=== PATIENT | female | born 1940 | race Caucasian/White ===

== ENCOUNTER 2017-07-31 09:19 | Day surgery (SDC) | payer OTHER ==
[2017-07-27 13:52] VITALS: BMI 32.5
[2017-07-31] MEDS ORDERED: PROPOFOL 20 ML ONE ×3 (09:49)
[2017-07-31] MEDS ORDERED: METOCLOPRAMIDE HCL INJECTION 10 MG/2 ML VIAL ONE (10:38)
[2017-07-31 11:03] VITALS: TEMP 97.8
[2017-07-31 11:32] VITALS: BP 116/64; PULSE 64
--- NOTE | 2017-08-01 12:17 | PATH ---
Surgical Pathology Report Patient Name: SREE LEE [facility]. Rec. #: [id number] /Age/Gender: 1940 (Age: 77) / F Account: [id number] Location: [facility]-ENDOSCOPY Taken: 07/31/2017 Received: 07/31/2017 Reported: 08/01/2017 Physicians: Dino Leung M.D. Specimen(s) Received A: BX STOMACH B: TRANSVERSE COLON POLYP C: TRANSVERE COLON POLYP Clinical History Anemia, blood Normal EGD, colon polyps (transverse colon); diverticulosis Final Diagnosis A. 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 NEGATIVE FOR DYSPLASIA. IMMUNOSTAIN FOR H. PYLORI IS POSITIVE FOR ORGANISMS (MODERATE NUMBER OF ORGANISMS). B. COLON, TRANSVERSE, POLYP, POLYPECTOMY: SERRATED ADENOMA. C. COLON, TRANSVERSE, POLYP, POLYPECTOMY: TUBULAR ADENOMA. Electronically Signed Munir Hutchison M.D. Gross Description A. Received in formalin, labeled "biopsy stomach" are 2 allison, irregular portions of soft tissue averaging 0.3 cm in greatest dimension. The specimens are submitted in toto in one cassette. B. Received in formalin, labeled "transverse colon polyp" is a allison, irregular portion of soft tissue measuring 0.2 cm in greatest dimension. The specimen is submitted in toto in one cassette. C. Received in formalin, labeled "transverse colon polyp" is a allison, irregular portion of soft tissue measuring 0.5 cm in greatest dimension. The specimen is submitted in toto in one cassette. 07/31/201707/31/2017
== END 2017-07-31 12:18 | disposition home or self-care (01) ==
LOC: JASU-ENDO 09:19
PROVIDERS: ATTEND Internal Medicine Gastroenterology
PROC: 0DBL8ZX Excision of Transverse Colon, Via Natural or Artificial Opening Endoscopic, Diagnostic (ICD-10-PCS; principal; 2017-07-31 09:45)
DX: Z12.11 Encounter for screening for malignant neoplasm of colon (principal); D12.3 Benign neoplasm of transverse colon; K57.30 Diverticulosis of large intestine without perforation or abscess without bleeding
CPT/HCPCS: 88305-TC; 88342-TC

== ENCOUNTER → 2018-09-02 | Day surgery (SDC) | payer OTHER ==
--- NOTE | 2018-09-06 14:24 | PATH ---
Surgical Pathology Report Patient Name: SREE LEE [facility]. Rec. #: [id number] /Age/Gender: 1940 (Age: 78) / F Account: [id number] Location: [facility]IOLOGY [facility] Taken: 09/02/2018 Received: 09/02/2018 Reported: 09/03/2018 Physicians: Hien Siegel Specimen(s) Received RIGHT BREAST,12:00 Clinical History Nonpalpable lesion Mammographic findings: Suspicious Ultrasound findings: Suspicious 0.7 CM, 12:00 Final Diagnosis BREAST, RIGHT, 12:00, ULTRASOUND GUIDED CORE BIOPSY: INVASIVE DUCTAL CARCINOMA, POORLY DIFFERENTIATED, WITH FOCAL MICROPAPILLARY FEATURES, ATLEAST 10 MM IN THIS MATERIAL. Comment: Findings discussed with Dr. Silva. ER, NH, HER2 and Ki-67 studies are pending, and will be reported separately. Electronically Signed Jessa Wong M.D. Addendum Reported: 09/04/2018 Addendum Diagnosis Results of Estrogen Receptor (ER) and Progesterone Receptor (NH) studies performed on block "1" at [facility] are as follows: ER (clone [id number] mouse monoclonal antibody by [employer]): >99% nuclear staining with strong intensity (Positive). NH (clone16 mouse monoclonal antibody by [employer]):>99% nuclear staining with strong intensity (Positive). Results of Her2 (IHC) & Ki-67 studies performed on block "1" at [place], [place] ([id number]) are as follows: Her2 IHC (EP3 from [employer], formerly known as [id number], using Saldaña Polymer Refine detection kit): 1+ ( Negative). Ki-67: ~20% (Intermediate proliferative index). Positive and negative controls (internal if applicable) show appropriate results. Formalin fixation and cold ischemic times are within current ASCO/CAP recommendations for ER, NH and Her2 testing.. Jessa Wong M.D. Gross Description Received in formalin labeled "right breast biopsy 12:00," are 4 allison-yellow, cylindrical portions of fibroadipose tissue ranging from 1.0-1.4 cm in length and averaging 0.1 cm in diameter. The specimens are submitted in toto in one cassette. Time to formalin fixation: Less than one minute Total formalin fixation time: Approximately 9 hours. 09/02/2018 saudi09/02/2018
== END | disposition home or self-care (01) ==
LOC: JRADUS-SUR 08:34
PROVIDERS: ATTEND Nurse Practitioner Family
PROC: 0HBT3ZX Excision of Right Breast, Percutaneous Approach, Diagnostic (ICD-10-PCS; principal; 2018-09-02)
DX: C50.811 Malignant neoplasm of overlapping sites of right female breast (principal)
CPT/HCPCS: 19083; 77065-TC; 88305-TC; 88342-TC

== ENCOUNTER 2018-09-27 13:00 | Inpatient (IN) | payer OTHER ==
--- NOTE | 2018-09-24 14:20 | HP ---
Admitting History and Physical - Primary Care Physician PCP: Hardy Mathis - Admission Chief Complaint: Right breast cancer History of Present Illness: 78 yo female with h/o left breast cancer (2011), was noted to have a right 1.1 cm mass at 12 oclock on mammo and US (06/24/2018). Core bx of this mass was c/w invasive breast cancer ER and [facility] positive, HER 2 negative. The patient is now presenting for right mastectomy, sentinel node bx, possible axillary node dissection and left chest wall skin excision. History Source: Patient Limitations to Obtaining History: Dementia (mild dementia) - Past Medical History Cardiovascular: Yes: HTN Pulmonary: Yes: Asthma ...: No Heme/Onc: Yes: Cancer (left breast cancer) - Past Surgical History Past Surgical History: Yes: Breast Biopsy (right excisional bx (benign at 37 yo) ), Mastectomy (left mastectomy with axillary albin bx 2011) Additional Past Surgical History: bilateral knee surgery (2003 and 2006) - Smoking History Smoking history: Never smoked Have you smoked in the past 12 months: No - Alcohol/Substance Use Hx Alcohol Use: No Home Medications - Allergies Allergies/Adverse Reactions: Allergies Allergy/AdvReac Type Severity Reaction Status Date / Time Penicillins Allergy Severe Rash Verified 09/20/18 14:25 hydromorphone HCl Allergy Unknown Verified 09/20/18 14:25 [From Dilaudid] ketorolac tromethamine Allergy Unknown Verified 09/20/18 14:25 [From Toradol] tape Allergy Unknown Rash Uncoded 09/20/18 14:25 - Home Medications Home Medications: Ambulatory Orders Amlodipine Bes/Olmesartan Med [Amlodipine-Olmesartan 10-20 mg] 1 each PO DAILY 07/31/17 Family Disease History - Family Disease History Family Disease History: CA: Sister (, x 1 ovarian cancer at 60) Review of Systems - Review of Systems Constitutional: reports: Loss of Appetite Eyes: reports: Blurred Vision Cardiovascular: reports: Chest Pain Respiratory: reports: Wheezing Musculoskeletal: reports: Back Pain Physical Examination Constitutional: Yes: Well Nourished, Calm Cardiovascular: Yes: WNL Respiratory: Yes: WNL Breast(s): Yes: Other (The right breast tissue is diffusely nodular and dense with a 1.5 cm mobile mass at 12N%. Left chest wall with redundant skin but without any suspicious masses or adenopathy noted.) Problem List - Problems (1) Breast cancer, right Code(s): C50.911 - MALIGNANT NEOPLASM OF UNSP SITE OF RIGHT FEMALE BREAST Qualifiers: Breast location: overlapping sites of breast Estrogen receptor status: positive Patient sex: female Qualified Code(s): C50.811 - Malignant neoplasm of overlapping sites of right female breast; Z17.0 - Estrogen receptor positive status [ER+] Assessment/Plan Plan' right mastectomy, snbx possible andx, left chest wall skin excision
[2018-09-28] MEDS ORDERED: HEPARIN NA (PORCINE) 5,000 UNITS/ML 1ML VIAL SQ SCH (10:00)
[2018-10-08 07:49] VITALS: BMI 34.0
[2018-10-08] MEDS ORDERED: PROPOFOL 20 ML ONE ×2 (08:01)
[2018-10-08] MEDS ORDERED: MIDAZOLAM HCL 2 MG/2 ML SINGLE DOSE VIAL ONE (08:01)
[2018-10-08] MEDS ORDERED: ROCURONIUM BROMIDE 50 MG/5 ML VIAL ONE (08:01)
[2018-10-08] MEDS ORDERED: SUCCINYLCHOLINE CHLORIDE 200 MG/10 ML VIAL ONE (08:01)
[2018-10-08] MEDS ORDERED: ACETAMINOPHEN 325 MG TABLET (FP) PO PRN (08:54)
[2018-10-08] MEDS ORDERED: ONDANSETRON 4 MG/2 ML VIAL IVPUSH PRN (08:54)
[2018-10-08] MEDS ORDERED: ZOLPIDEM TARTRATE 5 MG TABLET PO PRN (08:54)
[2018-10-08] MEDS ORDERED: oxyCODONE HCL 5 MG TABLET PO PRN (08:54)
[2018-10-08] MEDS ORDERED: BUPIVACAINE HCL/PF 2.5 MG/ML - 30 ML VIAL IJ ONE (08:58)
[2018-10-08] MEDS ORDERED: ISOSULFAN BLUE 10 MG/ML VIAL SQ ONE (08:58)
[2018-10-08] MEDS ORDERED: ceFAZolin SODIUM 1 GM VIAL ONE (09:10)
[2018-10-08] MEDS ORDERED: DEXAMETHASONE SOD PHOSPHATE 4 MG/1 ML VIAL ONE (09:10)
[2018-10-08] MEDS ORDERED: ePHEDrine SULFATE 50 MG/1 ML AMPULE ONE (09:15)
[2018-10-08] MEDS ORDERED: BUPIVACAINE HCL/PF 0.25% (2.5MG/ML) 10 ML VIAL IJ ONE (09:55)
[2018-10-08] MEDS ORDERED: PATIENT'S OWN MEDICATION (NON-FORMULARY) (Amlodipine Bes/Olmesartan Med [Amlodipine-Olmesa PO SCH (10:00)
[2018-10-08] MEDS ORDERED: DESFLURANE GAS 240 ML BOTTLE IH ONE (10:44)
[2018-10-08] MEDS ORDERED: NEOSTIGMINE METHYLSULFATE 0.5 MG/ML - 10 ML MDV ONE (11:06)
[2018-10-08] MEDS ORDERED: GLYCOPYRROLATE 0.2 MG/1 ML VIAL ONE ×2 (11:06→11:07)
--- NOTE | 2018-10-08 13:44 | OP ---
DATE OF OPERATION: 10/08/2018 PREOPERATIVE DIAGNOSIS: Right breast cancer, status post left mastectomy. POSTOPERATIVE DIAGNOSIS: Right breast cancer, status post left mastectomy. PROCEDURE: Right total mastectomy with sentinel node biopsy and left chest wall skin excision. ANESTHESIA: General intubated. ATTENDING SURGEON: Elizabeth Mathis MD SCHOOL COUNSELOR: KARLA Blood ESTIMATED BLOOD LOSS: Minimal. COMPLICATIONS: None. DESCRIPTION OF PROCEDURE: Patient was made aware of the risks and benefits of the procedure and consented. She was placed in the supine position, and after general anesthesia was induced, the patient was intubated. Then, 3 mL of 1% isosulfan blue was locally infiltrated into the peritumoral tissues. The operative site was prepped and draped in the usual sterile fashion. A curvilinear incision was made in the right axilla using blunt and sharp dissection. Tissues were dissected down. A cluster of 3 blue lymph nodes were identified and surgically excised and sent for frozen section. These were reported as no evidence of metastasis. Examination of the rest of the axilla found no other suspicious lymph nodes. An elliptical incision was made around the nipple. Using electrocautery, skin flaps were made superior to the clavicle, medial to the sternum, lateral to the latissimus dorsi, and inferiorly to the inframammary fold. Using electrocautery, the breast tissue was taken off the pectoralis muscle extending laterally to the latissimus dorsi. The right breast was then submitted with a short suture superior, long suture lateral. The wound was copiously irrigated with normal saline. Hemostasis was maintained by electrocautery. A 15-Ukrainian drain was then placed through an inferior stab wound and sutured to the skin with 2-0 silk. Skin was then closed with deep 3-0 and 4-0 interrupted Vicryl followed by a running subcuticular 4-0 Monocryl. Steri-Strips were then applied. The left side was approached. An elliptical incision was made over the redundant skin using electrocautery. Tissues were dissected down to the pectoral muscle and then taken off the lateral chest wall towards the axilla. This was then submitted for permanent sectioning. The wound was copiously irrigated with normal saline. Hemostasis was maintained by electrocautery. Through an inferior stab wound, another 15-Ukrainian drain was then placed and sutured to the skin with 2-0 silk. Skin was then closed with deep 2-0 and 3-0 deep sutures followed by a running subcuticular 4-0 Monocryl. Steri-Strips, sterile dressing, and a compression bandage were then applied, and the patient, having tolerated the procedure well, was transferred to the recovery room in excellent condition. ELIZABETH MATHIS M.D. [id number]
[2018-10-08] MEDS ORDERED: REFRIGERATED ANITBIOTICS ONE (15:40)
[2018-10-08] MEDS: CEFAZOLIN 1 GM/D5W 1 GRAM/50 ML BAG IVPB SCH (22:09)
[2018-10-09] MEDS: CEFAZOLIN 1 GM/D5W 1 GRAM/50 ML BAG IVPB SCH ×5 (02:57→21:21)
[2018-10-09 09:02] LABS: HEMATOCRIT 36.9 % (32.4-45.2); HEMOGLOBIN 12.5 GM/dl (10.7-15.3); MCH 30.8 pg (25.7-33.7); MCHC 33.8 g/dl (32.0-36.0); MEAN CELL VOLUME 91.3 fl (80-96); MEAN PLT VOLUME 9.6 fl (7.5-11.1); PLATELET COUNT 152 K/MM3 (134-434); RBC 4.04 M/mm3 (3.60-5.2); RDW 13.4 % (11.6-15.6); WHITE BLOOD COUNT 10.4 K/mm3 (4.0-10.8)
--- NOTE | 2018-10-09 09:02 | PN ---
Progress Note, Physician Chief Complaint: Right breast cancer S/P right total mastectomy sentenel node biopsy and excision of extra skin and tissue left breast POD #1 History of Present Illness: patient eating OOB ,minimal pain - Current Medication List Current Medications: Active Medications Acetaminophen (Tylenol -) 650 mg PO Q4H PRN PRN Reason: MILD PAIN Amlodipine Besylate (Norvasc -) 10 mg PO DAILY [facility] Heparin Sodium (Porcine) (Heparin -) 5,000 unit SQ BID@0800,2000 [facility] Cefazolin Sodium (Ancef 1 Gm Premixed Ivpb -) 1 gram in 50 mls @ 100 mls/hr IVPB Q6H-IV [facility] Stop: 10/15/18 14:59 Last Admin: 10/09/18 02:57 Dose: 100 mls/hr Dextrose/Sodium Chloride (D5-1/2ns -) 1,000 mls @ 100 mls/hr IV ASDIR [facility] Ondansetron HCl (Zofran Injection) 4 mg IVPUSH Q6H PRN PRN Reason: NAUSEA AND/OR VOMITING Oxycodone HCl (Roxicodone -) 5 mg PO Q4H PRN PRN Reason: PAIN LEVEL 6-10 Valsartan (Diovan -) 160 mg PO DAILY [facility] Zolpidem Tartrate (Ambien -) 5 mg PO HS PRN PRN Reason: Insomnia - Objective Vital Signs: Vital Signs Temperature 98.0 F 10/09/18 06:00 Pulse Rate 58 L 10/09/18 06:00 Respiratory Rate 17 10/09/18 06:00 Blood Pressure 131/47 L 10/09/18 06:00 O2 Sat by Pulse Oximetry (%) 97 10/09/18 07:01 Constitutional: Yes: No Distress Breast(s): Yes: Other (Biltaeral chest wall flaps viable incision intact HANNAH drains functioning well no signs of infection) Problem List - Problems (1) Breast cancer, right Code(s): C50.911 - MALIGNANT NEOPLASM OF UNSP SITE OF RIGHT FEMALE BREAST Qualifiers: Breast location: overlapping sites of breast Estrogen receptor status: positive Patient sex: female Qualified Code(s): C50.811 - Malignant neoplasm of overlapping sites of right female breast; Z17.0 - Estrogen receptor positive status [ER+] Assessment/Plan IV antibiotics spirometry SCD Heparin discharge planned for tomorrow consider VNS
--- NOTE | 2018-10-09 09:53 | PN ---
Progress Note (short form) - Note Progress Note: 78F POD1 s/p right breast mastectomy with sentinel lymph node biopsy and left chest wall skin excision under [facility]T Pt states that pain is well controlled and reports no anesthetic complications. AVSS. Continue current regimen.
[2018-10-09] MEDS: DEXTROSE 5%-0.45% SALINE 1,000 ML IV SCH (10:33)
[2018-10-09] MEDS: VALSARTAN 160 MG TABLET (UD) PO SCH ×2 (10:33→10:38)
[2018-10-09] MEDS: amLODIPine BESYLATE 10 MG TABLET (FP) PO SCH ×2 (10:34→10:38)
[2018-10-09] MEDS: HEPARIN NA (PORCINE) 5,000 UNITS/ML 1ML VIAL SQ SCH ×2 (10:35→21:21)
[2018-10-10] MEDS: CEFAZOLIN 1 GM/D5W 1 GRAM/50 ML BAG IVPB SCH ×2 (02:20→09:46)
[2018-10-10 06:50] VITALS: TEMP 97.8
[2018-10-10] MEDS: HEPARIN NA (PORCINE) 5,000 UNITS/ML 1ML VIAL SQ SCH (08:44)
--- NOTE | 2018-10-10 08:46 | PN ---
Progress Note, Physician Chief Complaint: Right breast cancer S/P right total mastectomy sentenel node biopsy and excision left chest wall skin POD #2 History of Present Illness: Patient is OOB , eating , pain controlled without medication ready for discharge with VNS services - Current Medication List Current Medications: Active Medications Acetaminophen (Tylenol -) 650 mg PO Q4H PRN PRN Reason: MILD PAIN Amlodipine Besylate (Norvasc -) 10 mg PO DAILY [facility] Last Admin: 10/09/18 10:38 Dose: Not Given Heparin Sodium (Porcine) (Heparin -) 5,000 unit SQ BID@0800,2000 [facility] Last Admin: 10/09/18 21:21 Dose: 5,000 unit Cefazolin Sodium (Ancef 1 Gm Premixed Ivpb -) 1 gram in 50 mls @ 100 mls/hr IVPB Q6H-IV [facility] Stop: 10/15/18 14:59 Last Admin: 10/10/18 02:20 Dose: 100 mls/hr Dextrose/Sodium Chloride (D5-1/2ns -) 1,000 mls @ 100 mls/hr IV ASDIR [facility] Last Admin: 10/09/18 10:33 Dose: Not Given Ondansetron HCl (Zofran Injection) 4 mg IVPUSH Q6H PRN PRN Reason: NAUSEA AND/OR VOMITING Oxycodone HCl (Roxicodone -) 5 mg PO Q4H PRN PRN Reason: PAIN LEVEL 6-10 Valsartan (Diovan -) 160 mg PO DAILY [facility] Last Admin: 10/09/18 10:38 Dose: Not Given Zolpidem Tartrate (Ambien -) 5 mg PO HS PRN PRN Reason: Insomnia - Objective Vital Signs: Vital Signs Temperature 97.8 F 10/10/18 06:00 Pulse Rate 57 L 10/10/18 06:00 Respiratory Rate 18 10/10/18 06:00 Blood Pressure 139/62 10/10/18 06:00 O2 Sat by Pulse Oximetry (%) 95 10/10/18 06:00 Constitutional: Yes: No Distress Breast(s): Yes: Other (Bilateral chest wall flaps viable incision intact steristrips in place, rudolph drains functioning well no signs of infection) Labs: CBC, BMP 10/09/18 08:53 Problem List - Problems (1) Breast cancer, right Code(s): C50.911 - MALIGNANT NEOPLASM OF UNSP SITE OF RIGHT FEMALE BREAST Qualifiers: Breast location: overlapping sites of breast Estrogen receptor status: positive Patient sex: female Qualified Code(s): C50.811 - Malignant neoplasm of overlapping sites of right female breast; Z17.0 - Estrogen receptor positive status [ER+] Assessment/Plan Discharge patient home today with VNS Cipro twice daily follow up one week with Dr Mathis
--- NOTE | 2018-10-10 08:47 | DS ---
Physical Examination Vital Signs: Vital Signs Temperature 97.8 F 10/10/18 06:00 Pulse Rate 57 L 10/10/18 06:00 Respiratory Rate 18 10/10/18 06:00 Blood Pressure 139/62 10/10/18 06:00 O2 Sat by Pulse Oximetry (%) 95 10/10/18 06:00 Constitutional: Yes: No Distress Breast(s): Yes: Other (Bilateral chest wall flaps viable incision intact with sterisstrips ,no sign of infection HANNAH drains functionin well) Labs: CBC, BMP 10/09/18 08:53 Discharge Summary Reason For Visit: RIGHT BREAST CA Condition: Good - Instructions Diet, Activity, Other Instructions: Post Operative Instructions - [facility] We hope your recovery will be uneventful. For those of you who have been given general anesthesia, there is a possibility you might have some lightheadedness and possibly nausea. It is important that each patient, especially those who have had general anesthesia, follow these instructions, please: 1. Do NOT operate a motor vehicle for 24 hours. 2. Do NOT drink any alcoholic beverages for 24 hours. 3. Do NOT take any sedatives, narcotics, or tranquilizers for 24 hours unless specifically ordered by your surgeon. 4. Do NOT undertake any strenuous exercise or outside activity for 24 hours unless specifically permitted by your surgeon. 5. Eat light foods that are easy to digest. If you have any problems with nausea and vomiting, lie down and rest. If it continues, call your surgeon. 6. Call your surgeon AT ONCE if you have problems with: a. Bleeding b. Urinating c. Excessive pain or drainage d. Numbness If any problems occur, call your physician first. If you cannot reach him/her, call the Ambulatory Surgery Unit at [phone], or the Emergency Room at [phone]. Follow up with Drs. Urena / Antonio in 7 days. Medication: Vicodin E-S OR Percocet 1-2 tablets every 4-6 hrs as needed for 5-7 days. Wound Care: Keep wound dry and clean for 48 hours. You may remove the dressing after 48 hours and may shower. Keep steri-strips in place until follow-up appointment No heavy lifting or strenuous activities. BREAST SURGERY INSTRUCTIONS Gerry Urena M.D., FACS Duran Urena M.D., VINNIE Alvarez M.D., FACS 1. Please call the office at to make a follow up appointment with your surgeon. This number can be also used for any urgent issues you may have. 2. Call us immediately if any of the following occur: *Bleeding from the incision or drain site (a small amount is normal) *Fever or chills *Redness and worsening tenderness around the surgical site *Drainage of pus or fluid from the incision or drain site 3. You may change the surgical dressing two (2) days after your surgery, and may shower then. If you have drains, you may shower after they have been removed, until then take a sponge bath. 4. It is normal for there to be some bruising and tenderness around the surgical site, and the breast may also be firm in this area. 5. Your surgeon used 3M DuraPrep Surgical Solution, a bacteria-killing skin preparation. It is recommended that this film remain on the skin after the procedure. The film will gradually wear away. If, however, early removal is desired: 1. Apply 8610 or 8611 3M Remover solution to the prepped area, keeping away from the wound edge or puncture site. Wipe off with a disposable towel. OR 2. Soak gauze with 70% Isopropyl alcohol and place on the prepped area for at least 40 seconds. Lightly scrub to remove the solution. 6. Please wear a comfortable bra (sports or surgical bra) all day and all night until your first follow-up visit with your surgeon. 7. The pain medicine you have been prescribed may make you constipated; make sure you drink plenty of water. You may use an over the counter laxative if needed. 8. You may resume your normal diet after surgery, although you may want to avoid rich foods for the first twenty-four (24) hours after surgery. Alcoholic drinks should be avoided while taking the prescribed pain medicine. 9. You may resume normal activities as long as there is no discomfort, but do not do upper body exercises until after your follow-up appointment. Do not lift anything heavier than a large phone book. You may resume driving once you have stopped taking the prescribed pain medicine and feel comfortable doing arm movements. WEAR BINDER, NO SHOWER, EMPTY HANNAH DRAIN TWICE DAILY AND RECORD Referrals: Hardy Mathis MD [Staff Physician] - Disposition: HOME - Home Medications Comprehensive Discharge Medication List: Ambulatory Orders Amlodipine Bes/Olmesartan Med [Amlodipine-Olmesartan 10-20 mg] 1 each PO DAILY 07/31/17 Acetaminophen [Tylenol] 650 mg PO TID PRN #30 tablet 10/09/18 Ciprofloxacin HCl [Cipro] 500 mg PO BID #20 tablet 10/10/18
[2018-10-10] MEDS: DEXTROSE 5%-0.45% SALINE 1,000 ML IV SCH (09:46)
[2018-10-10] MEDS: amLODIPine BESYLATE 10 MG TABLET (FP) PO SCH (09:47)
[2018-10-10] MEDS: VALSARTAN 160 MG TABLET (UD) PO SCH (09:47)
[2018-10-10 10:13] VITALS: BP 129/60; PULSE 59
--- NOTE | 2018-10-16 17:43 | PATH ---
Surgical Pathology Report Patient Name: [facility]. Rec. #: [id number] /Age/Gender: 1940 (Age: 78) / F Account: [id number] Location: [facility] MED-SURG Taken: 10/08/2018 Received: 10/08/2018 Reported: 10/16/2018 Physicians: Hardy Mathis M.D. Specimen(s) Received A: RIGHT AXILLARY SENTINEL NODES (FS) B: RIGHT BREAST MASTECTOMY C: LEFT CHEST WALL SKIN AND SUBCUTANEOUS TISSUE Clinical History Status post left mastectomy Invasive Ca right breast Intraoperative Consult Diagnosis Right axillary sentinel node, frozen section: Three negative lymph nodes. Taye Saenz M.D., 10/08/18 Final Diagnosis A. lymph nodes, right axillary sentinel, excision (FS): Three lymph nodes, negative for metastatic carcinoma (0/3). B. breast, right, total mastectomy: Two foci of invasive ductal carcinoma, present in the upper inner quadrant (UIQ) and lower inner quadrant (LIQ), respectively: The focus of invasive carcinoma in the UIQ is moderately differentiated with micropapillary features (tubule score: 3/3, nuclear grade: 2/3, mitotic score: 2/3, total score: 7/9; Rich grade 2), measures 1.1 cm in greatest dimension, microscopically and is present in association with prior biopsy site changes. THE Focus of invasive carcinoma in the LIQ is moderately differentiated (tubule score: 3/3, nuclear grade: 2/3, mitotic score: 1/3, total score: 6/9; Rich grade 2) and measures 5 mm in greatest dimension, microscopically. 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 Surgical margins are uninvolved by, AND WIDELY CLEAR OF carcinoma. Skin and NIPPLE EPIDERMIS ARE uninvolved by DCIS (DCIS involves large lactiferous ducts of nipple). No lymphovascular invasion is identified. Remaining breast tissue shows atypical ductal hyperplasia (ADH), lobular carcinoma in situ (LCIS), classical type, flat epithelial atypia (FEA), proliferative fibrocystic changes and a focus of dystrophic ossification. Pathologic stage (pTNM): pT1c (m) pN0. see also invasive carcinoma Case summary below. Note: Myoepithelial immunohistochemical markers (SMM-HC & p63, performed at [facility] on block B9: invasive carcinoma in LIQ) demonstrate the lack of myoepithelial cells in the invasive carcinoma. This finding supports the diagnosis. C. skin, and SUBCUTANEOUS tissue, left chest wall, excision: Skin and subcutaneous tissue with no pathologic findings. Comments Breast Invasive Carcinoma: Surgical Pathology Case Summary (Based on AJCC TNM 8 th edition) Procedure _X_ Total mastectomy (including nipple-sparing and skin-sparing mastectomy) Specimen Laterality _X_ Right Tumor Size _X_ Greatest dimension of largest invasive focus >1 mm : 11 mm Histologic Type _X_ Invasive carcinoma with micropapillary features _X_ Invasive carcinoma of no special type (ductal, not otherwise specified) Histologic Grade ([place] Histologic Score) Glandular (Acinar)/Tubular Differentiation _X_ Score 3 (<10% of tumor area forming glandular/tubular structures) Nuclear Pleomorphism _X_ Score 2 Mitotic Rate _X_ Score 1- 2 Overall Grade _X_ Grade 2 (scores of 6 or 7) Tumor Focality _X_ Multiple foci of invasive carcinoma Number of foci: 2 Sizes of individual foci: 11 mm, 5 mm Ductal Carcinoma In Situ (DCIS) _X_ DCIS is present in specimen _X_ Positive for extensive intraductal component (EIC) Margins Invasive Carcinoma Margins _X_ Uninvolved by invasive carcinoma Distance from closest margin (millimeters): at least 4 cm from closest deep margin (gross measurement) DCIS Margins _X_ Uninvolved by DCIS _X_ Cannot be determined (no DCIS is present at, or close to inked margins) Regional Lymph Nodes Number of Lymph Nodes with Macrometastases (>2 mm): 0 Number of Lymph Nodes with Micrometastases (>0.2 mm to 2 mm and/or >200 cells): 0 Number of Lymph Nodes with Isolated Tumor Cells (=0.2 mm and =200 cells): 0 Number of Lymph Nodes Examined: 3 Number of [place] Nodes Examined: 3 Treatment Effect _X_ No known presurgical therapy Lymphovascular Invasion _X_ Not identified Pathologic Stage Classification (pTNM, AJCC 8th Edition) Primary Tumor (Invasive Carcinoma) (pT) _X_ pT1c (m): Tumor >10 mm but =20 mm in greatest dimension Regional Lymph Nodes (pN) Category (pN) _X_ pN0 (sn): No regional lymph node metastasis identified or ITCs only Biomarker Studies Results of ER and ND studies performed on this specimen (block B9, invasive carcinoma in LIQ) at [facility] are as follows: ER (clone [id number] mouse monoclonal antibody by [employer]): > 90 % nuclear staining with strong intensity (Positive). ND (clone16 mouse monoclonal antibody by [employer]): ~60 % nuclear staining with weak to moderate intensity (Positive). Results of Her2 (IHC) & Ki-67 studies performed on this specimen (block B9, invasive carcinoma in LIQ) at [place], [place] ([id number]) are as follows: Her2 IHC (EP3 from [employer], formerly known as [id number], using Saldaña Polymer Refine detection kit): 1+ (Negative). Ki67: 5-7% (low proliferative index). Results of ER and ND studies performed on prior specimen ([id number]; core biopsy from invasive carcinoma in UIQ) at [facility] are as follows: ER (clone 6F11 mouse monoclonal antibody by [employer]): > 99 % nuclear staining with strong intensity (Positive). ND (clone16 mouse monoclonal antibody by [employer]): > 99 % nuclear staining with strong intensity (Positive). Results of Her2 (IHC) & Ki-67 studies performed on prior specimen ([id number]; core biopsy from invasive carcinoma in UIQ) at [place], [place] ([id number]) are as follows: Her2 IHC (EP3 from [employer], formerly known as [id number], using Saldaña Polymer Refine detection kit): 1+ (Negative). Ki-67: ~20% (Intermediate proliferative index). Positive and negative controls (internal if applicable) show appropriate results. Formalin fixation and cold ischemic times are within current ASCO/CAP recommendations for ER, ND and Her2 testing. Electronically Signed Henny Saenz M.D. Gross Description A. Received fresh labeled "right axillary sentinel nodes" are 3 lymph nodes ranging from 0.4-1.1 cm in greatest dimension. The largest lymph node is bisected and frozen section is performed on the lymph nodes. The frozen section residue is entirely submitted in 2 cassettes as follows: 1-one bisected lymph node; 2-two whole lymph nodes. B. Received in formalin, labeled "right breast mastectomy," is a 1664 gram, 23.0 x 17.5 x 9.0 cm. right mastectomy specimen with a short suture marking the superior aspect and a long suture marking the lateral aspect of the specimen, per the surgeon. The anterior surface displays a 23.0 x 14.0 cm allison, elliptical portion of skin with a 1.2 cm in diameter nipple. The deep margin is inked black and the anterior soft tissue margin is inked blue. The specimen is serially sectioned from lateral to medial. Sectioning reveals a 1.0 x 1.0 x 0.7 cm allison, firm mass in the upper inner quadrant (UIQ). The mass is 6 cm from the deep margin and 3 cm from the skin. There is a 0.5 cm in greatest dimension allison, indurated nodule in the lower inner quadrant (LIQ). The nodule is 4 cm from the deep margin. The remaining breast parenchyma displays abundant dense, white, focally firm fibrous tissue. Merchant Tailor sections are submitted in 17 cassettes as follows: 1-serially sectioned nipple; 2-subareolar shave; 3-4-UIQ mass; 6-6-ydntopxogn UIQ; 8-9-LIQ nodule; 10-uninvolved LIQ; 11-12-upper outer quadrant; 13-14-lower outer quadrant; 15-retroareolar tissue; 16-skin and anterior soft tissue margin; 17-deep margin. Time to formalin fixation: 55 minutes Total formalin fixation time: Approximately 32 hours. C. Received in formalin labeled "left chest wall skin and subcutaneous tissue," is 485 gram, 21.0 x 16.0 x 3.2 cm aggregate of multiple unoriented portions of skin with underlying soft tissue. The epidermal surfaces are unremarkable. Sectioning of the underlying soft tissue reveals unremarkable fibroadipose tissue. No lesions are identified. A sales representative cash registers section is submitted in one cassette. 10/09/2018 [facility]10/09/2018
== END 2018-10-10 10:00 | disposition home health service (06) | DRG 581 ==
LOC: FM/S 10-08 07:00
PROVIDERS: ADMIT Surgery Surgical Oncology; ATTEND Surgery Surgical Oncology
PROC: 0HB5XZZ Excision of Chest Skin, External Approach (ICD-10-PCS; 2018-10-08)
PROC: 07B80ZX Excision of Right Internal Mammary Lymphatic, Open Approach, Diagnostic (ICD-10-PCS; principal; 2018-10-08 09:23)
PROC: 0HTT0ZZ Resection of Right Breast, Open Approach (ICD-10-PCS; 2018-10-08 09:23)
PROC: 0HRT075 Replacement of Right Breast using Latissimus Dorsi Myocutaneous Flap, Open Approach (ICD-10-PCS; 2018-10-08 09:23)
DX: C50.811 Malignant neoplasm of overlapping sites of right female breast (principal); I10 Essential (primary) hypertension; F03.90 Unspecified dementia, unspecified severity, without behavioral disturbance, psychotic disturbance, mood disturbance, and anxiety; Z17.0 Estrogen receptor positive status [ER+]; Z85.3 Personal history of malignant neoplasm of breast; J45.909 Unspecified asthma, uncomplicated
CPT/HCPCS: 36415; 85027; 88304-TC; 88307-TC; 88331-TC; 88341-TC; 94760; J1644

== ENCOUNTER 2019-01-13 07:17 | Emergency (ER) | payer OTHER ==
[2019-01-13 07:35] VITALS: BMI 32.8
--- NOTE | 2019-01-13 07:52 | PDOC ---
History of Present Illness - General Chief Complaint: Back Pain Stated Complaint: PAIN Time Seen by Provider: 01/13/19 07:52 - History of Present Illness Initial Comments: 78 year year old female with PMH of HTN, bilateral knee replacement,s and bilateral brast mastectomy 2 months prior presenting with left eye swelling, left knee pain, right rib pain, and mid/ upper back pain after rolling out of bed onto the floor this morning and hitting her head on the side table. Denies any LOC, nausea, vomiting, or other symptoms. Her daughter at bedside states that her behavior is per her baseline. She does admit to some erythema over her right breast since her surgery two months ago that hasn't increased in size or become swollen. Patient and daughter deny fevers, chills, nausea, vomiting, or other symptoms. 01/13/19 09:47 Past History - Past Medical History Allergies/Adverse Reactions: Allergies Allergy/AdvReac Type Severity Reaction Status Date / Time Penicillins Allergy Severe Rash Verified 01/13/19 07:41 hydromorphone HCl Allergy Unknown Verified 01/13/19 07:41 [From Dilaudid] ketorolac tromethamine Allergy Unknown Verified 01/13/19 07:41 [From Toradol] tape Allergy Unknown Rash Uncoded 01/13/19 07:41 Home Medications: Ambulatory Orders Amlodipine Bes/Olmesartan Med [Amlodipine-Olmesartan 10-20 mg] 1 each PO DAILY 07/31/17 Anemia: No Asthma: No (PT STATES SHE HAS PROBLEMS WITH ALLERGIES) Cancer: Yes (RIGHT BREAST ,LEFT BREAST 2012) Cardiac Disorders: No CVA: No COPD: No CHF: No Dementia: No Diabetes: No GI Disorders: Yes (HIATAL HERNIA) Disorders: No HTN: Yes Hypercholesterolemia: No Liver Disease: No Seizures: No Thyroid Disease: No - Surgical History Abdominal Surgery: No Appendectomy: No Cardiac Surgery: No Cholecystectomy: No Lung Surgery: No Neurologic Surgery: No Orthopedic Surgery: Yes (BILATERAL KNEE REPLACEMENTS) - Immunization History Td Vaccination: No Immunization Up to Date: Yes - Suicide/Smoking/Psychosocial Hx Smoking History: Never smoked Have you smoked in the past 12 months: No Information on smoking cessation initiated: No Hx Alcohol Use: No Drug/Substance Use Hx: No Substance Use Type: None Hx Substance Use Treatment: No Review of Systems - Review of Systems Constitutional: No: Chills, Diaphoresis, Fever, Loss of Appetite HEENTM: No: Blurred Vision, Tearing Respiratory: No: Cough, Orthopnea, Shortness of Breath Cardiac (ROS): No: Edema, Irregular Heart Rate ABD/GI: No: Diarrhea, Nausea, Vomiting : No: Dysuria, Discharge Musculoskeletal: Yes: Back Pain, Joint Pain, Joint Swelling Integumentary: No: Lumps, Pallor, Pruritus ( ) Neurological: No: Headache, Numbness, Paresthesia Psychiatric: No: Anxiety, Depression, Stressors Endocrine: No: Flushing Hematologic/Lymphatic: No: Anemia, Blood Clots *Physical Exam - Vital Signs Last Vital Signs Temp Pulse Resp BP Pulse Ox 78 18 153/65 100 01/13/19 07:31 01/13/19 07:31 01/13/19 07:31 01/13/19 07:31 - Physical Exam General Appearance: Yes: Nourished, Appropriately Dressed. No: Apparent Distress HEENT: positive: EOMI, TRINA, Normal Voice. negative: Normal ENT Inspection ( Left upper eyelid abrasion) Neck: positive: Trachea midline, Normal Thyroid, Supple. negative: Tender, Rigid Respiratory/Chest: positive: Lungs Clear, Respiratory Distress. negative: Chest Tender, Accessory Muscle Use Cardiovascular: positive: Regular Rhythm, Regular Rate Gastrointestinal/Abdominal: positive: Normal Bowel Sounds, Flat, Soft. negative : Tender Musculoskeletal: positive: Vertebral Tenderness (T3 vertebral tenderness). negative: Normal Inspection, Decreased Range of Motion Extremity: positive: Normal Capillary Refill, Normal Range of Motion. negative : Normal Inspection (TTP over left knee with mild swelling but full ROM), Tender Integumentary: positive: Normal Color, Dry, Warm Neurologic: positive: Fully Oriented, Alert, Normal Mood/Affect, Normal Response , Motor Strength 5/5 Moderate Sedation - Procedure Monitoring Vital Signs: Procedure Monitoring Vital Signs Temperature Pulse Rate 78 01/13/19 07:31 Respiratory Rate 18 01/13/19 07:31 Blood Pressure 153/65 01/13/19 07:31 O2 Sat by Pulse Oximetry (%) 100 01/13/19 07:31 Medical Decision Making - Medical Decision Making 78 year old female presenting with back pain and left eyelid bleeding/ swelling after fall from bed. PE significant for small left upper eyelid abrasion and upper thoracic back pain. Head CT, facial bones CT, cervical spine CT, thoracic spine CT, right rib series, and left knee film all negative for hemorrhage or fracture. Pain improved with tylenol. Light erythema over breast but not warm, swollen, fluctuant or otherwise concerning for infection. There as a read of a thyroid nodule for which the patient will follow up with her PCP. Will DC with tylenol use instructions, follow up instructions, and return precautions. 01/13/19 10:40 *DC/Admit/Observation/Transfer Diagnosis at time of Disposition: Fall from bed Qualifiers: Encounter type: initial encounter Qualified Code(s): W06.XXXA - Fall from bed, initial encounter - Discharge Dispostion Disposition: HOME Condition at time of disposition: Improved Decision to Admit order: No - Referrals - Patient Instructions Printed Discharge Instructions: DI for Thoracic Back Pain Additional Instructions: You have no fractures of your bones. Please use Tylenol at home for the pain. Please follow up with your breast surgeon this week to have the redness evaluated as it's likely a result of the surgery and not an infection. Please return to the ED immediately if you have fevers, nausea, vomiting, or other symptoms. You have been given a copy of the CDs of the CT scans and radiographs. There is a nodule in your thyroid that you should follow up. You may take 650 mg tylenol every 4 hours as needed for pain. Follow up with your doctor. - Post Discharge Activity
[2019-01-13] MEDS ORDERED: ACETAMINOPHEN 325 MG TABLET (FP) PO ONE (08:34)
[2019-01-13] MEDS ORDERED: ACETAMINOPHEN 325 MG TABLET (FP) ONE ×2 (08:35→13:02)
--- NOTE | 2019-01-13 09:11 | PDOC ---
Attending Attestation - Resident Resident Name: Rona Long - ED Attending Attestation I have performed the following: I have examined & evaluated the patient, The case was reviewed & discussed with the resident, I agree w/resident's findings & plan, Exceptions are as noted - HPI HPI: 01/13/19 09:13 78 year old female with past medical history of bilateral breast cancer status post mastectomy, I will hernia, hypertension, bilateral knee replacements presents with mechanical fall. The patient rolled out of bed this morning and landed on her body. She reported hitting her left forehead. Complains of pain of upper back and right ribs and left knee. Denies any numbness or weakness. Patient developed ecchymosis but no lacerations. Came to the ED for evaluation. - Physicial Exam PE: 01/13/19 09:14 GENERAL: Awake, alert, and fully oriented, in no acute distress HEAD: +left raccoon eye but no العر[place] sign. no septal hematoma. no hemotympanum. No loose teeth. mild abrasion to bridge of nose. EYES: EOMI, sclera anicteric, conjunctiva clear ENT: Auricles normal inspection, hearing grossly normal, nares patent, Moist mucosa NECK: Normal ROM, supple. No c-spine tenderness. TTP R upper back. No thoracic spinal tenderness LUNGS: Breath sounds equal, clear to auscultation bilaterally. No wheezes, and no crackles HEART: Regular rate and rhythm, normal S1 and S2, no murmurs, rubs or gallops ABDOMEN: Soft, nontender No guarding, no rebound. No masses EXTREMITIES: Normal range of motion, no edema. No clubbing or cyanosis. No cords, erythema, or tenderness. + left anterior knee with ecchymosis and mild edema. FROM but negative anterior/ drawer test, negative varus and valgus. Sensation intact throughout. NEUROLOGICAL: Cranial nerves II through XII grossly intact. Normal speech SKIN: Warm, Dry, normal turgor, no rashes or lesions noted. - Medical Decision Making 01/13/19 09:20 Vital Signs Temp Pulse Resp BP Pulse Ox 78 18 153/65 100 01/13/19 07:31 01/13/19 07:31 01/13/19 07:31 01/13/19 07:31 78-year-old female with mechanical fall. I agree with resident's plan to obtain a head CT, facial CT, C-spine and thoracic spine CT as well as right ribs x-ray and left knee x-ray. She declines pain medication at this time. Reassess. 01/13/19 11:56 CT reviewed. Nonspecific nodules, thyroid nodule and findings for potential ankylosing spondylisis. Will given this information to the patient to follow up with outpatient. If symptoms improved, pt can be discharged home with followup. 01/13/19 12:43 Xrays reviewed. no acute findings. Pt feels comfortable going home. I discussed the physical exam findings, ancillary test results and final diagnoses with the patient. I answered all of the patient's questions. The patient was satisfied with the care received and felt comfortable with the discharge plan and treatment plan. The patient will call their primary care physician within 24 hours to arrange follow-up and will return to the Emergency Department with any new, persistant or worsening symptoms. *DC/Admit/Observation/Transfer Diagnosis at time of Disposition: Fall from bed Qualifiers: Encounter type: initial encounter Qualified Code(s): W06.XXXA - Fall from bed, initial encounter - Discharge Dispostion Disposition: HOME Condition at time of disposition: Improved - Referrals - Patient Instructions Printed Discharge Instructions: DI for Thoracic Back Pain Additional Instructions: You have no fractures of your bones. Please use Tylenol at home for the pain. Please follow up with your breast surgeon this week to have the redness evaluated as it's likely a result of the surgery and not an infection. Please return to the ED immediately if you have fevers, nausea, vomiting, or other symptoms. You have been given a copy of the CDs of the CT scans and radiographs. There is a nodule in your thyroid that you should follow up. You may take 650 mg tylenol every 4 hours as needed for pain. Follow up with your doctor. - Post Discharge Activity
[2019-01-13 12:50] VITALS: BP 143/64; PULSE 63
== END 2019-01-13 13:08 | disposition home or self-care (01) ==
LOC: JER 07:17
DX: M54.6 Pain in thoracic spine (principal); M25.562 Pain in left knee; S00.212A Abrasion of left eyelid and periocular area, initial encounter; W06.XXXA Fall from bed, initial encounter; Y93.89 Activity, other specified; Y92.032 Bedroom in apartment as the place of occurrence of the external cause; I10 Essential (primary) hypertension; Z85.3 Personal history of malignant neoplasm of breast; Z90.13 Acquired absence of bilateral breasts and nipples; Z96.653 Presence of artificial knee joint, bilateral
CPT/HCPCS: 70450-TC; 70486-TC; 71101-TC-RT-FY; 72070-TC-FY; 72125-TC; 72128-TC; 73560-TC-LT-FY; 99282-25

== ENCOUNTER 2021-03-08 17:48 | Inpatient (IN) | payer OTHER ==
[2021-03-08 20:08] LABS: BASO % 0.5 % (0-2.0); EOS % 0.6 % (0-4.5); HEMATOCRIT 47.7 % (32.4-45.2); HEMOGLOBIN 15.9 GM/dL (10.7-15.3); LYMPH % 9.7 % (8-40); MCH 30.5 pg (25.7-33.7); MCHC 33.4 g/dl (32.0-36.0); MEAN CELL VOLUME 91.3 fl (80-96); MEAN PLT VOLUME 9.8 fl (7.5-11.1); MONO % 6.1 % (3.8-10.2); NEUT % 83.1 % (42.8-82.8); PLATELET COUNT 145 K/MM3 (134-434); RBC 5.23 M/mm3 (3.60-5.2); RDW 14.6 % (11.6-15.6)
[2021-03-08 20:18] LABS: INR 1.17 (0.83-1.09); PROTHROMBIN TIME (PATIENT) 14.1 SEC (9.7-13.0)
[2021-03-08 20:27] LABS: CALCIUM 8.6 mg/dL (8.5-10.1)
[2021-03-08 20:28] LABS: ALBUMIN 3.1 g/dl (3.4-5.0); BLOOD UREA NITROGEN 10.9 mg/dL (7-18)
[2021-03-08 20:31] LABS: CREATININE 0.5 mg/dL (0.55-1.3)
[2021-03-08 20:33] LABS: BILIRUBIN,TOTAL 0.9 mg/dL (0.2-1); TOT PROT 7.2 g/dl (6.4-8.2)
[2021-03-08] MEDS ORDERED: LACTATED RINGERS SOLUTION 1000 ML INFUS.BAG IV ONE (20:55)
[2021-03-08] MEDS ORDERED: CIPROFLOXACIN 400 MG/D5W 400 MG/200 ML IVPB IVPB ONE (23:19)
[2021-03-09] MEDS ORDERED: HYDROCORTISONE 1% TOPICAL CREAM 30 GM TUBE TP PRN (03:41)
[2021-03-09 05:15] VITALS: BMI 29.3
[2021-03-09 09:20] LABS: BASO % 0.3 % (0-2.0); EOS % 0.1 % (0-4.5); HEMATOCRIT 47.8 % (32.4-45.2); HEMOGLOBIN 16.2 GM/dL (10.7-15.3); MCH 31.1 pg (25.7-33.7); MCHC 33.9 g/dl (32.0-36.0); MEAN CELL VOLUME 91.8 fl (80-96); MEAN PLT VOLUME 9.8 fl (7.5-11.1); MONO % 5.7 % (3.8-10.2); NEUT % 83.9 % (42.8-82.8); PLATELET COUNT 121 K/MM3 (134-434); RDW 14.7 % (11.6-15.6); WHITE BLOOD COUNT 8.7 K/mm3 (4.0-10.0)
[2021-03-09 09:28] LABS: INR 1.25 (0.83-1.09); PROTHROMBIN TIME (PATIENT) 15.3 SEC (9.7-13.0)
[2021-03-09 09:30] LABS: ACTIVATED PTT 28.2 SECONDS (25.2-36.5)
[2021-03-09 09:49] LABS: BLOOD UREA NITROGEN 12.1 mg/dL (7-18); CALCIUM 8.8 mg/dL (8.5-10.1)
[2021-03-09 09:50] LABS: MAGNESIUM 1.9 mg/dL (1.8-2.4)
[2021-03-09 09:53] LABS: BILIRUBIN,TOTAL 0.9 mg/dL (0.2-1); CREATININE 0.5 mg/dL (0.55-1.3); TOT PROT 6.8 g/dl (6.4-8.2)
[2021-03-09 09:54] LABS: PHOSPHOROUS 3.1 mg/dL (2.5-4.9)
[2021-03-09] MEDS ORDERED: LOSARTAN POTASSIUM 50 MG TABLET PO SCH (10:00)
[2021-03-09] MEDS ORDERED: CIPROFLOXACIN 200 MG/D5W 100 ML IVPB SCH (10:15)
[2021-03-09] MEDS ORDERED: ENOXAPARIN NA (PORCINE) 40 MG/0.4 ML DISP.SYRIN SQ SCH (10:30)
[2021-03-09] MEDS: SODIUM CHLORIDE 1,000 ML IV SCH (12:27)
[2021-03-09] MEDS: PANTOPRAZOLE SODIUM 40 MG VIAL IVPUSH SCH (12:28)
[2021-03-09] MEDS: CIPROFLOXACIN 200 MG/D5W 100 ML IVPB SCH ×2 (13:55→21:21)
[2021-03-09] MEDS ORDERED: PT OWN MED DRAWER 7, Y5N ONE (21:12)
[2021-03-10] MEDS: SODIUM CHLORIDE 1,000 ML IV SCH ×2 (03:02→13:59)
[2021-03-10 09:27] LABS: BASO % 0.4 % (0-2.0); EOS % 2.3 % (0-4.5); HEMATOCRIT 41.2 % (32.4-45.2); MCH 31.1 pg (25.7-33.7); MEAN CELL VOLUME 91.4 fl (80-96); MEAN PLT VOLUME 9.4 fl (7.5-11.1); MONO % 5.3 % (3.8-10.2); PLATELET COUNT 131 K/MM3 (134-434); RBC 4.51 M/mm3 (3.60-5.2); RDW 14.5 % (11.6-15.6); WHITE BLOOD COUNT 7.7 K/mm3 (4.0-10.0)
[2021-03-10] MEDS: PANTOPRAZOLE SODIUM 40 MG VIAL IVPUSH SCH (10:03)
[2021-03-10] MEDS: LOSARTAN POTASSIUM 25 MG TABLET PO SCH ×2 (10:03→10:10)
[2021-03-10 10:04] LABS: BLOOD UREA NITROGEN 12.9 mg/dL (7-18); PHOSPHOROUS 2.4 mg/dL (2.5-4.9); TOT PROT 5.8 g/dl (6.4-8.2)
[2021-03-10 10:05] LABS: CALCIUM 8.1 mg/dL (8.5-10.1); CREATININE 0.7 mg/dL (0.55-1.3)
[2021-03-10 10:06] LABS: MAGNESIUM 1.8 mg/dL (1.8-2.4)
[2021-03-10 10:08] LABS: ALBUMIN 2.6 g/dl (3.4-5.0)
[2021-03-10] MEDS ORDERED: MINERAL OIL/PETROLAT/WATER TOPICAL CREAM 113 GM JAR TP PRN (10:40)
[2021-03-10] MEDS ORDERED: NAPH,MB-DB/K PH,MBDB POWDER PACKET PO ONE (11:00)
[2021-03-10] MEDS ORDERED: DEXTROSE 5%-WATER 100 ML IVPB ONE (13:39)
[2021-03-10] MEDS: CEFTRIAXONE 2 GM in DEXTROSE 5%-WATER 100 ML IVPB SCH (13:59)
[2021-03-10] MEDS ORDERED: BISACODYL 5 MG TABLET.DR (FP) PO ONE (16:00)
[2021-03-10] MEDS ORDERED: PEG 3350/NA SULF BICARB CL/KCL 4000 ML SOLN.RECON PO ONE (17:00)
[2021-03-10] MEDS ORDERED: POLYETHYLENE GLYCOL 3350 255 GM BTL PO ONE (17:00)
[2021-03-10] MEDS ORDERED: TRIMETHOBENZAMIDE HCL 200MG/2ML INJ IM ONE (20:06)
[2021-03-11] MEDS: SODIUM CHLORIDE 1,000 ML IV SCH (06:27)
[2021-03-11 08:50] LABS: BASO % 0.5 % (0-2.0); EOS % 5.5 % (0-4.5); HEMATOCRIT 41.5 % (32.4-45.2); HEMOGLOBIN 14.1 GM/dL (10.7-15.3); LYMPH % 18.1 % (8-40); MCH 31.2 pg (25.7-33.7); MCHC 33.9 g/dl (32.0-36.0); MEAN CELL VOLUME 92.2 fl (80-96); MEAN PLT VOLUME 9.7 fl (7.5-11.1); MONO % 8.7 % (3.8-10.2); NEUT % 67.2 % (42.8-82.8); PLATELET COUNT 125 K/MM3 (134-434); RDW 14.8 % (11.6-15.6)
[2021-03-11] MEDS ORDERED: DEXTROSE 5%-WATER 100 ML IVPB ONE (09:12)
[2021-03-11 09:13] LABS: ALBUMIN 2.9 g/dl (3.4-5.0)
[2021-03-11 09:14] LABS: CALCIUM 8.9 mg/dL (8.5-10.1)
[2021-03-11 09:17] LABS: CREATININE 0.6 mg/dL (0.55-1.3)
[2021-03-11 09:18] LABS: BILIRUBIN,TOTAL 0.7 mg/dL (0.2-1); TOT PROT 6.2 g/dl (6.4-8.2)
[2021-03-11] MEDS: LOSARTAN POTASSIUM 25 MG TABLET PO SCH (09:18)
[2021-03-11] MEDS: CEFTRIAXONE 2 GM in DEXTROSE 5%-WATER 100 ML IVPB SCH (09:18)
[2021-03-11] MEDS: PANTOPRAZOLE 40 MG TABLET PO SCH (09:18)
[2021-03-11] MEDS ORDERED: ACETAMINOPHEN 325 MG TABLET (FP) PO PRN (16:39)
[2021-03-12 09:07] LABS: BASO % 0.8 % (0-2.0); EOS % 8.1 % (0-4.5); HEMATOCRIT 39.3 % (32.4-45.2); HEMOGLOBIN 13.3 GM/dL (10.7-15.3); LYMPH % 17.9 % (8-40); MCH 31.1 pg (25.7-33.7); MCHC 33.8 g/dl (32.0-36.0); MEAN PLT VOLUME 10.2 fl (7.5-11.1); MONO % 9.6 % (3.8-10.2); NEUT % 63.6 % (42.8-82.8); PLATELET COUNT 112 K/MM3 (134-434); RBC 4.27 M/mm3 (3.60-5.2); RDW 14.6 % (11.6-15.6); WHITE BLOOD COUNT 4.6 K/mm3 (4.0-10.0)
[2021-03-12] MEDS ORDERED: DEXTROSE 5%-WATER 100 ML IVPB ONE (09:28)
[2021-03-12] MEDS: LOSARTAN POTASSIUM 25 MG TABLET PO SCH (09:34)
[2021-03-12] MEDS: PANTOPRAZOLE 40 MG TABLET PO SCH (09:35)
[2021-03-12] MEDS: CEFTRIAXONE 2 GM in DEXTROSE 5%-WATER 100 ML IVPB SCH (09:35)
[2021-03-12 09:50] LABS: ALBUMIN 2.6 g/dl (3.4-5.0); BLOOD UREA NITROGEN 6.6 mg/dL (7-18)
[2021-03-12 09:51] LABS: MAGNESIUM 1.8 mg/dL (1.8-2.4)
[2021-03-12 09:52] LABS: CREATININE 0.4 mg/dL (0.55-1.3)
[2021-03-12 09:54] LABS: BILIRUBIN,TOTAL 0.6 mg/dL (0.2-1); TOT PROT 5.5 g/dl (6.4-8.2)
[2021-03-12] MEDS ORDERED: POTASSIUM CHLORIDE TABS 20 MEQ TABLET.ER (FP) PO ONE (15:59)
[2021-03-13] MEDS ORDERED: DEXTROSE 5%-WATER 100 ML IVPB ONE (08:58)
[2021-03-13] MEDS: PANTOPRAZOLE 40 MG TABLET PO SCH (09:03)
[2021-03-13] MEDS: LOSARTAN POTASSIUM 25 MG TABLET PO SCH (09:03)
[2021-03-13] MEDS: CEFTRIAXONE 2 GM in DEXTROSE 5%-WATER 100 ML IVPB SCH (09:04)
[2021-03-13 09:40] LABS: HEMOGLOBIN 14.2 GM/dL (10.7-15.3); MCH 31.5 pg (25.7-33.7); MCHC 34.5 g/dl (32.0-36.0); MEAN CELL VOLUME 91.3 fl (80-96); PLATELET COUNT 134 K/MM3 (134-434); RBC 4.49 M/mm3 (3.60-5.2); WHITE BLOOD COUNT 4.2 K/mm3 (4.0-10.0)
[2021-03-13 10:13] LABS: CALCIUM 8.4 mg/dL (8.5-10.1)
[2021-03-13 10:14] LABS: MAGNESIUM 1.9 mg/dL (1.8-2.4)
[2021-03-13 10:17] LABS: CREATININE 0.5 mg/dL (0.55-1.3)
[2021-03-13 17:12] VITALS: BP 144/68; PULSE 74; TEMP 98.8
== END 2021-03-13 17:45 | disposition home or self-care (01) | DRG 392 ==
LOC: JER 17:48 → JERBED 23:21 → J6S 03-09 04:26
PROVIDERS: ADMIT Hospitalist; ATTEND Student in an Organized Health Care Education/Training Program
PROC: 0DBH8ZX Excision of Cecum, Via Natural or Artificial Opening Endoscopic, Diagnostic (ICD-10-PCS; 2021-03-11)
PROC: 0DBL8ZX Excision of Transverse Colon, Via Natural or Artificial Opening Endoscopic, Diagnostic (ICD-10-PCS; principal; 2021-03-11 13:35)
DX: K52.9 Noninfective gastroenteritis and colitis, unspecified (principal); K63.5 Polyp of colon; K64.8 Other hemorrhoids; I10 Essential (primary) hypertension; I87.2 Venous insufficiency (chronic) (peripheral); I86.8 Varicose veins of other specified sites; I86.4 Gastric varices; R94.31 Abnormal electrocardiogram [ECG] [EKG]; K21.9 Gastro-esophageal reflux disease without esophagitis; K57.90 Diverticulosis of intestine, part unspecified, without perforation or abscess without bleeding; Z85.3 Personal history of malignant neoplasm of breast
CPT/HCPCS: 36415; 71045-TC-FY; 74177-TC; 80048; 80053; 80061; 82550; 83605; 83721; 83735; 84100; 84436; 84443; 84484; 85025; 85027; 85610; 85730; 86850; 86900; 86901; 87045; 87046; 87077; 87177; 87186; 87205; 87207; 87209; 87324; 87328; 87329; 87425; 87449; 87798; 88305-TC; 93005; 93010; 97116-GP; 97162-GP; 99285-25; C9803; Q9967; U0003; U0005

== ENCOUNTER 2022-10-20 09:34 | Inpatient (IN) | payer OTHER ==
[2022-10-20 11:44] LABS: BASO % 0.7 % (0-2.0); EOS % 1.1 % (0-4.5); HEMATOCRIT 45.2 % (32.4-45.2); HEMOGLOBIN 14.8 GM/dL (10.7-15.3); LYMPH % 10.3 % (8-40); MCH 30.3 pg (25.7-33.7); MCHC 32.7 g/dl (32.0-36.0); MEAN CELL VOLUME 92.7 fl (80-96); MEAN PLT VOLUME 10.3 fl (7.5-11.1); MONO % 7.8 % (3.8-10.2); NEUT % 80.1 % (42.8-82.8); PLATELET COUNT 130 10^3/uL (134-434); RBC 4.87 M/mm3 (3.60-5.2); RDW 14.3 % (11.6-15.6)
[2022-10-20 11:52] LABS: INR 1.21 (0.83-1.09)
[2022-10-20 11:54] LABS: ACTIVATED PTT 32.3 SECONDS (25.2-36.5)
[2022-10-20 12:13] LABS: CALCIUM 9.2 mg/dL (8.5-10.1)
[2022-10-20 12:15] LABS: CREATININE 0.5 mg/dL (0.55-1.3)
[2022-10-20 12:17] LABS: BILIRUBIN,TOTAL 0.7 mg/dL (0.2-1)
[2022-10-20] MEDS ORDERED: ONDANSETRON 4 MG/2 ML VIAL IVPUSH PRN (15:54)
[2022-10-20] MEDS ORDERED: SODIUM CHLORIDE 0.45% 1,000 ML IV SCH (16:00)
[2022-10-20] MEDS ORDERED: SODIUM CHLORIDE 1,000 ML IV SCH (16:00)
[2022-10-20] MEDS ORDERED: PANTOPRAZOLE SODIUM 40 MG VIAL ONE (16:30)
[2022-10-20] MEDS: PANTOPRAZOLE SODIUM 80 MG in SODIUM CHLORIDE 100 ML IVPB SCH (16:40)
[2022-10-20 16:46] LABS: BASO % 0.4 % (0-2.0); EOS % 3.3 % (0-4.5); HEMATOCRIT 45.5 % (32.4-45.2); HEMOGLOBIN 14.7 GM/dL (10.7-15.3); MCH 30.3 pg (25.7-33.7); MCHC 32.4 g/dl (32.0-36.0); MEAN CELL VOLUME 93.4 fl (80-96); MEAN PLT VOLUME 10.4 fl (7.5-11.1); MONO % 6.4 % (3.8-10.2); NEUT % 71.9 % (42.8-82.8); PLATELET COUNT 121 10^3/uL (134-434); RBC 4.87 M/mm3 (3.60-5.2); RDW 14.2 % (11.6-15.6); WHITE BLOOD COUNT 5.8 K/mm3 (4.0-10.0)
[2022-10-20 19:30] LABS: BASO % 0.5 % (0-2.0); EOS % 5.4 % (0-4.5); HEMATOCRIT 43.6 % (32.4-45.2); HEMOGLOBIN 14.3 GM/dL (10.7-15.3); LYMPH % 18.8 % (8-40); MCH 30.3 pg (25.7-33.7); MCHC 32.8 g/dl (32.0-36.0); MEAN CELL VOLUME 92.2 fl (80-96); MONO % 8.5 % (3.8-10.2); NEUT % 66.8 % (42.8-82.8); PLATELET COUNT 123 10^3/uL (134-434); RBC 4.73 M/mm3 (3.60-5.2)
[2022-10-20 22:36] VITALS: RESP 20
[2022-10-21 02:57] LABS: URINE APPEARANCE CLEAR; URINE BILIRUBIN NEGATIVE (NEGATIVE); URINE COLOR YELLOW; URINE GLUCOSE (UA) NEGATIVE (NEGATIVE); URINE KETONE NEGATIVE (NEGATIVE); URINE LEUK ESTERASE NEGATIVE (NEGATIVE); URINE NITRITE NEGATIVE (NEGATIVE); URINE PROTEIN TRACE (NEGATIVE); URINE UROBILINOGEN 0.2 mg/dL (0.2-1.0)
[2022-10-21] MEDS: LOSARTAN POTASSIUM 50 MG TABLET PO SCH ×2 (03:24→10:55)
[2022-10-21] MEDS: PANTOPRAZOLE SODIUM 80 MG in SODIUM CHLORIDE 100 ML IVPB SCH (03:24)
[2022-10-21 09:48] LABS: BASO % 0.6 % (0-2.0); EOS % 10.7 % (0-4.5); HEMOGLOBIN 13.8 GM/dL (10.7-15.3); LYMPH % 24.1 % (8-40); MCH 30.7 pg (25.7-33.7); MCHC 32.9 g/dl (32.0-36.0); MEAN CELL VOLUME 93.3 fl (80-96); MEAN PLT VOLUME 10.2 fl (7.5-11.1); MONO % 8.4 % (3.8-10.2); NEUT % 56.2 % (42.8-82.8); PLATELET COUNT 115 10^3/uL (134-434); RDW 14.4 % (11.6-15.6); WHITE BLOOD COUNT 5.2 K/mm3 (4.0-10.0)
[2022-10-21 09:50] LABS: INR 1.24 (0.83-1.09); PROTHROMBIN TIME (PATIENT) 14.3 SEC (9.7-13.0)
[2022-10-21 09:51] LABS: ACTIVATED PTT 31.5 SECONDS (25.2-36.5)
[2022-10-21 09:54] LABS: ALBUMIN 2.7 g/dl (3.4-5.0); BLOOD UREA NITROGEN 14.7 mg/dL (7-18); CALCIUM 8.4 mg/dL (8.5-10.1); MAGNESIUM 2.1 mg/dL (1.8-2.4)
[2022-10-21 09:57] LABS: CREATININE 0.5 mg/dL (0.55-1.3); PHOSPHOROUS 3.2 mg/dL (2.5-4.9)
[2022-10-21 09:59] LABS: BILIRUBIN,TOTAL 1.4 mg/dL (0.2-1); TOT PROT 6.2 g/dl (6.4-8.2)
[2022-10-21] MEDS ORDERED: LOSARTAN POTASSIUM 50 MG TABLET PO SCH (13:37)
[2022-10-21 16:22] LABS: BASO % 0.7 % (0-2.0); EOS % 10.1 % (0-4.5); HEMATOCRIT 42.8 % (32.4-45.2); HEMOGLOBIN 13.9 GM/dL (10.7-15.3); LYMPH % 21.2 % (8-40); MCH 30.1 pg (25.7-33.7); MCHC 32.5 g/dl (32.0-36.0); MEAN CELL VOLUME 92.5 fl (80-96); MEAN PLT VOLUME 9.8 fl (7.5-11.1); PLATELET COUNT 118 10^3/uL (134-434); RBC 4.62 M/mm3 (3.60-5.2); RDW 14.1 % (11.6-15.6); WHITE BLOOD COUNT 5.3 K/mm3 (4.0-10.0)
[2022-10-22 11:15] LABS: BASO % 0.7 % (0-2.0); EOS % 13.7 % (0-4.5); HEMATOCRIT 45.9 % (32.4-45.2); HEMOGLOBIN 14.9 GM/dL (10.7-15.3); LYMPH % 21.5 % (8-40); MCH 30.5 pg (25.7-33.7); MCHC 32.5 g/dl (32.0-36.0); MEAN CELL VOLUME 93.9 fl (80-96); MEAN PLT VOLUME 10.3 fl (7.5-11.1); MONO % 8.4 % (3.8-10.2); NEUT % 55.7 % (42.8-82.8); PLATELET COUNT 123 10^3/uL (134-434); RBC 4.89 M/mm3 (3.60-5.2); RDW 14.5 % (11.6-15.6); WHITE BLOOD COUNT 4.6 K/mm3 (4.0-10.0)
[2022-10-22 11:29] LABS: ALBUMIN 2.9 g/dl (3.4-5.0); CALCIUM 9.1 mg/dL (8.5-10.1)
[2022-10-22 11:30] LABS: BLOOD UREA NITROGEN 12.6 mg/dL (7-18); MAGNESIUM 2.2 mg/dL (1.8-2.4)
[2022-10-22 11:32] LABS: CREATININE 0.6 mg/dL (0.55-1.3); PHOSPHOROUS 3.8 mg/dL (2.5-4.9)
[2022-10-22 11:33] LABS: BILIRUBIN,TOTAL 1.5 mg/dL (0.2-1); TOT PROT 6.8 g/dl (6.4-8.2)
[2022-10-22 16:58] VITALS: BMI 37.3
[2022-10-22] MEDS ORDERED: LOSARTAN POTASSIUM 25 MG TABLET PO ONE (19:15)
[2022-10-23] MEDS ORDERED: ALBUTEROL SO4 HFA INHALER IH PRN (08:19)
[2022-10-23] MEDS ORDERED: LORATADINE 10 MG TABLET PO ONE (08:20)
[2022-10-23] MEDS ORDERED: LOSARTAN POTASSIUM 50 MG TABLET PO SCH ×2 (10:00→16:53)
[2022-10-23] MEDS ORDERED: MINERAL OIL/PET HY-PHL TOPICAL OINTMENT 454 GM JAR TP SCH (11:15)
[2022-10-23 12:00] LABS: BASO % 0.7 % (0-2.0); EOS % 16.4 % (0-4.5); HEMATOCRIT 42.1 % (32.4-45.2); HEMOGLOBIN 13.7 GM/dL (10.7-15.3); MCH 30.4 pg (25.7-33.7); MCHC 32.5 g/dl (32.0-36.0); MEAN CELL VOLUME 93.6 fl (80-96); MONO % 8.5 % (3.8-10.2); NEUT % 53.4 % (42.8-82.8); PLATELET COUNT 119 10^3/uL (134-434); RDW 14.2 % (11.6-15.6); WHITE BLOOD COUNT 3.7 K/mm3 (4.0-10.0)
[2022-10-23 12:39] LABS: CALCIUM 8.8 mg/dL (8.5-10.1)
[2022-10-23 12:40] LABS: ALBUMIN 2.6 g/dl (3.4-5.0); BLOOD UREA NITROGEN 12.6 mg/dL (7-18)
[2022-10-23 12:43] LABS: CREATININE 0.7 mg/dL (0.55-1.3)
[2022-10-23 12:44] LABS: BILIRUBIN,TOTAL 1.3 mg/dL (0.2-1); TOT PROT 6.1 g/dl (6.4-8.2)
[2022-10-23 15:27] VITALS: TEMP 98.2
[2022-10-23] MEDS ORDERED: amLODIPine BESYLATE 5 MG TABLET (FP) PO ONE (16:49)
[2022-10-23 17:55] VITALS: BP 144/72; PULSE 78
[2022-10-23 18:25] LABS: BILIRUBIN,DIRECT 0.4 mg/dL (0.0-0.2)
[2022-10-23] MEDS ORDERED: ARTIFICIAL TEARS (POLYVINYL ALCOHOL) OPTH DROPS OU SCH (22:00)
== END 2022-10-23 18:21 | disposition home or self-care (01) | DRG 394 ==
LOC: JER 09:34 → JERBED 12:36 → J8W 20:27
PROVIDERS: ADMIT Internal Medicine; ATTEND Internal Medicine
DX: K64.8 Other hemorrhoids (principal); K55.9 Vascular disorder of intestine, unspecified; K92.2 Gastrointestinal hemorrhage, unspecified; I10 Essential (primary) hypertension; J45.909 Unspecified asthma, uncomplicated; K21.9 Gastro-esophageal reflux disease without esophagitis
CPT/HCPCS: 36415; 74176-TC; 80053; 81003; 82248; 82272; 82550; 82962; 83735; 84100; 84443; 84484; 85025; 85610; 85730; 93005; 93010; 97116-GP; 97161-GP; 99285-25; C9803-CS; U0003; U0005